=== PATIENT | female | born 1990 | race Caucasian/White ===

== ENCOUNTER 2019-03-25 20:42 | Emergency (ER) | payer SELFPAY ==
[~2019-03-25] VITALS: Ht 170.2 cm; Wt 65.8 kg
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
--- NOTE | 2019-03-25 20:45 | NUR ---
Patient to ER bed 6 to gown for evaluation. Side rails up. Report given to LILIBETH DYER.
[2019-03-25 20:46] VITALS: BP_SYST 126
--- NOTE | 2019-03-25 20:54 | NUR ---
ER Dr. Fritz at bedside examining patient.
[2019-03-25] MEDS: ONDANSETRON 4 MG ODT TAB PO ONE ×2 (21:10→21:13)
[2019-03-25] MEDS: HYDROcodone/ACETAMIN 5-325 MG TAB (NORCO/ VICODIN) PO ONE ×2 (21:11→21:13)
--- NOTE | 2019-03-25 21:14 | NUR ---
Pt refused medication administration for her pain and nausea. Dr. Fritz has been notified
[2019-03-25 21:44] LABS: BILIRUBIN,URINE 1+ (NEGATIVE); BLOOD, URINE 3+ (NEGATIVE); CLARITY/URINE HAZY (CLEAR); COLOR,URINE AMBER (YELLOW); GLUCOSE,URINE TRACE (NEGATIVE); KETONES,URINE TRACE (NEGATIVE); LEUKOCYTE ESTERASE ,URINE 2+ (NEGATIVE); NITRITE, URINE POSITIVE (NEGATIVE); PROTEIN URINE 2+ (NEGATIVE)
--- NOTE | 2019-03-25 21:53 | NUR ---
Radiology at bedside for xray
[2019-03-25 22:09] LABS: BACTERIA,URINE MANY /HPF (None Seen); RBC,URINE 20-50 /HPF (0-3); WBC,URINE 20-50 /HPF (0-3)
[2019-03-25] MEDS ORDERED: NITROFURANTOIN MONOHYD/M-CRYST 100 MG CAPSULE PO ONE (22:30)
[2019-03-25 22:49] VITALS: BP_SYST 126
--- NOTE | 2019-03-25 22:49 | NUR ---
Patient given written and verbal discharge instructions and verbalizes understanding. ER MD discussed with patient the results and treatment provided. Patient in stable condition. ID arm band removed. Rx of Zofran, [place], and Macrobid given. Patient educated on pain management and to follow up with PMD. Pain Scale 0. Opportunity for questions provided and answered. Medication side effect fact sheet provided.
== END 2019-03-25 22:49 | disposition home or self-care (01) ==
LOC: SED 20:42
DX: S83.8X2A Sprain of other specified parts of left knee, initial encounter (principal); S09.90XA Unspecified injury of head, initial encounter; N39.0 Urinary tract infection, site not specified; Z88.1 Allergy status to other antibiotic agents; Y04.0XXA Assault by unarmed brawl or fight, initial encounter; Y93.89 Activity, other specified; Y92.89 Other specified places as the place of occurrence of the external cause; Y99.8 Other external cause status
CPT/HCPCS: 70450; 73590; 73630; 81000; 81025; 87086; 87186; 99284; Q0162